=== PATIENT | male | born 1990 | race Caucasian/White ===

== ENCOUNTER 2018-06-28 13:39 | Emergency (ER) | payer OTHER ==
[2018-06-28 13:47] VITALS: BP 154/90
--- NOTE | 2018-06-28 13:53 | ED Physician Documentation ---
PD HPI UPPER EXT INJURY - Stated complaint Stated Complaint: HAND INJURY - Chief complaint Chief Complaint: Ext Problem - History obtained from History obtained from: Patient - History of Present Illness Location: Right, Hand Type of injury: Blunt / blow Where injury occurred: Other (gym) Timing - onset: Today Timing - duration: Minutes Timing - details: Abrupt onset, Still present Improved by: Rest, Immobilization Worsened by: Moving, Palpating Associated symptoms: Swelling, Discolored. No: Weakness, Numbness Contributing factors: No: Anticoagulated Similar symptoms before: Has not had sx before Recently seen: Not recently seen - Additonal information Additional information: Previously well 28-year-old male was playing volleyball today and he jumped up and hit the ball very hard to spike it and he is complaining of some pain and swelling over his hand with some discoloration and some pain over his latissimus in the arc from the arm and shoulder down to the edge of the ribs. Review of Systems Constitutional: denies: Fever, Chills Eyes: denies: Decreased vision Ears: denies: Ear pain Nose: denies: Congestion Throat: denies: Sore throat Respiratory: denies: Cough GI: denies: Vomiting PD PAST MEDICAL HISTORY - Present Medications Home Medications: Ambulatory Orders Medication Instructions Recorded Confirmed Cyclobenzaprine [Flexeril] 10 mg PO TID PRN #20 tablet 06/28/18 Dextroamphetamine/Amphetamine 30 mg PO DAILY 06/28/18 06/28/18 [Adderall Xr 30 mg Capsule] Hydrocodone/Acetaminophen 1 - 2 each PO Q6H PRN #14 tablet 06/28/18 [Hydrocodon-Acetaminophen 5-325] - Allergies Allergies/Adverse Reactions: Allergies Allergy/AdvReac Type Severity Reaction Status Date / Time No Known Drug Allergies Allergy Verified 06/28/18 13:45 PD ED PE NORMAL - Vitals Vital signs reviewed: Yes (hypertension ) - General General: Alert and oriented X 3, No acute distress, Well developed/nourished - HEENT HEENT: Atraumatic, PERRL, EOMI - Respiratory Respiratory: No respiratory distress - Back Back: No CVA TTP, No spinal TTP, Other (There is tenderness to the posterior chest wall on the right side not over the rhomboids but to the paraspinous muscles of the thoracic spine on the right side. ) - Derm Derm: Normal color, Warm and dry, No rash - Extremities Extremities: No deformity, Other (There is swelling and ecchymosis to the right hand over the thenar emminance and over the distal ulna. there is no ecchymosis to the dorsum of the hand and there is full ROM to the wrist joint. There is some restriction in movement of the index and middle fingers secondary to swelling and pain over the thenar eminance. ) - Neuro Neuro: Alert and oriented X 3, vat operator 2-12 intact, No motor deficit, No sensory deficit, Normal speech Eye Opening: Spontaneous Motor: Obeys Commands Verbal: Oriented GCS Score: 15 - Psych Psych: Normal mood, Normal affect Results - Vitals Vitals: Vital Signs - 24 hr 06/28/18 13:43 Temperature 36.9 C Heart Rate 84 Respiratory 20 Rate Blood Pressure 154/90 H O2 Saturation 98 Oxygen O2 Source Room air - Rads (name of study) right hand Radiology: Prelim report reviewed (Impression: No acute fracture or subluxation.), EMP read indepedently, See rad report Procedures - Splint (location) right hand Splint applied by: Tech Type of splint: Fiberglass, Thumb spica Other: Patient tolerated well, No complications, Neurovascular intact, Good alignment PD MEDICAL DECISION MAKING - ED course Complexity details: reviewed results, re-evaluated patient, considered differential, d/w patient ED course: 28-year-old male with a contusion to the right hand has no evidence of fracture on x-ray examination he is placed into a thumb spica for comfort he also has some thoracic strain and he has more pain associated with this than anything else and this does appear all to be related to the same injury with the patient being passionate about playing volleyball. Departure - Departure Disposition: 01 Home, Self Care Clinical Impression: Hand contusion Qualifiers: Encounter type: initial encounter Laterality: right Qualified Code(s): S60.221A - Contusion of right hand, initial encounter Thoracic myofascial strain Qualifiers: Encounter type: initial encounter Qualified Code(s): S29.019A - Strain of muscle and tendon of unspecified wall of thorax, initial encounter Condition: Stable Instructions: ED Contusion Hand, ED Sprain Thoracic Spine Follow-Up: GAGE CARDOSO [Primary Care Provider] - Prescriptions: Cyclobenzaprine [Flexeril] 10 mg PO TID PRN #20 tablet PRN Reason: Spasms Hydrocodone/Acetaminophen [Hydrocodon-Acetaminophen 5-325] 1 - 2 each PO Q6H PRN #14 tablet PRN Reason: pain
--- NOTE | 2018-06-28 14:30 | XRAY Report ---
Reason: contusion over thenar eminance. Procedure Date: 06/28/2018 Accession Number: [id number] / [id number] Procedure: XR - Hand 3 View RT CPT Code: FULL RESULT: EXAM: RIGHT HAND RADIOGRAPHY EXAM DATE: 06/28/2018 02:12 PM. CLINICAL HISTORY: Contusion over thenar eminance. COMPARISON: None. TECHNIQUE: 3 views. FINDINGS: Bones: Normal. No fractures or bone lesions. Joints: Normal. No subluxations. Soft Tissues: Normal. No soft tissue swelling. IMPRESSION: No acute fracture or subluxation. [facility]
== END 2018-06-28 14:45 | disposition home or self-care (01) ==
LOC: ED 13:39
DX: S29.012A Strain of muscle and tendon of back wall of thorax, initial encounter (principal); S60.221A Contusion of right hand, initial encounter; W21.06XA Struck by volleyball, initial encounter; X50.1XXA Overexertion from prolonged static or awkward postures, initial encounter; Y93.68 Activity, volleyball (beach) (court); Y92.318 Other athletic court as the place of occurrence of the external cause
CPT/HCPCS: 29125; 99283